=== PATIENT | male | born 1970 | race African-American/Black ===

== ENCOUNTER 2018-04-01 22:01 | Inpatient (IN) | payer MEDICAID ==
[~2018-04-01] VITALS: Ht 193 cm; Wt 118.8 kg
[2018-04-02 00:37] LABS: BASOPHILS % 1.1 % (0.0-2.0); EOSINOPHILS % 1.4 % (0.0-5.0); HEMATOCRIT. 36.8 % (42.0-52.0); HEMOGLOBIN. 12.1 g/dL (14.0-18.0); LYMPHOCYTES % 19.5 % (20.0-50.0); MEAN CORPUSCULAR HEMOGLOBIN 28.2 pg (28.0-32.0); MEAN CORPUSCULAR VOLUME 85.5 fL (80.0-94.0); MEAN PLATELET VOLUME 7.5 fl (7.4-10.4); MONOCYTES % 9.2 % (2.0-8.0); NEUTROPHILS % 68.8 % (40.0-76.0); PLATELET 219 x1000/uL (130-400); RED BLOOD CELL COUNT 4.31 mill/uL (4.7-6.1); RED CELL DISTRIBUTION WIDTH 22.8 % (11.6-14.6)
[2018-04-02 00:40] LABS: CHLORIDE 105 mEq/L (98-107)
[2018-04-02 00:43] LABS: INR 1.2; PARTIAL THROMBOPLASTIN TIME 27.5 sec (23.4-31.0); PROTHROMBIN TIME 12.1 sec (9.1-11.1)
[2018-04-02] MEDS ORDERED: FUROSEMIDE 100MG/10ML VIAL IVP ONE (01:00)
[2018-04-02] MEDS ORDERED: ACETAMINOPHEN 325MG TABLET PO PRN (09:45)
[2018-04-02] MEDS ORDERED: ONDANSETRON HCL 4MG/2ML INJ IV PRN (09:45)
[2018-04-02] MEDS: FUROSEMIDE 100MG/10ML VIAL IVP SCH ×2 (11:14→17:47)
[2018-04-02 11:50] VITALS: BP 112/78
[2018-04-02 12:00] VITALS: BP 110/78
[2018-04-02 15:43] LABS: CLARITY URINE CLEAR (CLEAR); COLOR URINE YELLOW (YELLOW); KETONES URINE NEGATIVE (NEGATIVE); LEUKOCYTE ESTERASE URINE NEGATIVE (NEGATIVE); NITRITE URINE NEGATIVE (NEGATIVE); OCCULT BLOOD URINE NEGATIVE (NEGATIVE); PROTEIN URINE NEGATIVE (NEGATIVE); SPECIFIC GRAVITY URINE 1.004 (1.005-1.030)
[2018-04-02 15:59] LABS: *AMPHETAMINES SCREEN URINE NEGATIVE (NEGATIVE); *BARBITURATES SCREEN URINE NEGATIVE (NEGATIVE); *BENZODIAZEPINES SCREEN URINE NEGATIVE (NEGATIVE); *COCAINE SCREEN URINE NEGATIVE (NEGATIVE)
[2018-04-02 16:00] VITALS: BP 118/71
[2018-04-02 16:00] LABS: CANNABINOID URINE SCREEN NEGATIVE (NEGATIVE); METHADONE URINE SCREEN NEGATIVE (NEGATIVE); OPIATES URINE SCREEN NEGATIVE (NEGATIVE); PHENCYCLIDINE URINE SCREEN NEGATIVE (NEGATIVE)
[2018-04-02 16:24] LABS: LDL CHOLESTEROL 65 mg/dL (5-100)
[2018-04-02 16:26] LABS: CREATINE KINASE 144 IU/L (39-308); HDL CHOLESTEROL 36 mg/dL (40-59)
[2018-04-02 20:00] VITALS: BP 102/68
[2018-04-02 21:00] VITALS: BP 102/68
[2018-04-03] VITALS: BP 110/77
[2018-04-03 04:00] VITALS: BP 98/53
[2018-04-03 06:00] VITALS: BP 112/70
[2018-04-03] MEDS: FUROSEMIDE 100MG/10ML VIAL IVP SCH ×2 (06:16→10:32)
[2018-04-03 07:17] LABS: BASOPHILS % 1.2 % (0.0-2.0); EOSINOPHILS % 1.6 % (0.0-5.0); HEMATOCRIT. 35.2 % (42.0-52.0); HEMOGLOBIN. 11.7 g/dL (14.0-18.0); LYMPHOCYTES % 21.1 % (20.0-50.0); MEAN CORPUSCULAR VOLUME 84.2 fL (80.0-94.0); MEAN PLATELET VOLUME 7.3 fl (7.4-10.4); MONOCYTES % 11.9 % (2.0-8.0); NEUTROPHILS % 64.2 % (40.0-76.0); PLATELET 208 x1000/uL (130-400); RED BLOOD CELL COUNT 4.18 mill/uL (4.7-6.1); RED CELL DISTRIBUTION WIDTH 23.2 % (11.6-14.6)
[2018-04-03 08:00] VITALS: BP 107/64
[2018-04-03 08:08] LABS: CHLORIDE 99 mEq/L (98-107)
[2018-04-03 12:00] VITALS: BP 110/71
[2018-04-03] MEDS: LISINOPRIL 10MG TABLET PO SCH (13:30)
[2018-04-03 15:15] LABS: PLATELET ESTIMATE NORMAL
[2018-04-03 20:00] VITALS: BP 98/67
[2018-04-03] MEDS: CARVEDILOL 3.125 MG TABLET PO SCH (21:19)
[2018-04-04] VITALS: BP 105/74
[2018-04-04 04:00] VITALS: BP 100/70
[2018-04-04] MEDS: FUROSEMIDE 100MG/10ML VIAL IVP SCH ×2 (07:05→17:07)
[2018-04-04 08:00] VITALS: BP 98/50
[2018-04-04] MEDS: LISINOPRIL 10MG TABLET PO SCH (08:53)
[2018-04-04] MEDS: CARVEDILOL 3.125 MG TABLET PO SCH ×2 (08:53→22:30)
[2018-04-04 12:00] VITALS: BP 108/78
[2018-04-04 16:00] VITALS: BP 110/79
[2018-04-04] MEDS: NICOTINE 7MG PATCH TD SCH (17:07)
[2018-04-04 20:00] VITALS: BP 86/49
[2018-04-04 20:48] LABS: CHLORIDE 95 mEq/L (98-107)
[2018-04-05] VITALS: BP 90/59
[2018-04-05 08:00] VITALS: BP 114/84
[2018-04-05] MEDS ORDERED: LIDOCAINE HCL 1% 20ML VIAL (Pyxis) INJ ONE (09:47)
[2018-04-05] MEDS ORDERED: SODIUM BICARBONATE 4% (2.4MEQ) 5ML VIAL IV ONE (09:47)
[2018-04-05] MEDS: CARVEDILOL 3.125 MG TABLET PO SCH ×2 (10:08→20:58)
[2018-04-05] MEDS: LISINOPRIL 10MG TABLET PO SCH (10:08)
[2018-04-05] MEDS: NICOTINE 7MG PATCH TD SCH (10:09)
[2018-04-05] MEDS: FUROSEMIDE 100MG/10ML VIAL IVP SCH ×2 (11:23→17:44)
[2018-04-05 12:00] VITALS: BP 120/70
[2018-04-05 16:00] VITALS: BP 100/70
[2018-04-05] MEDS ORDERED: HYDROCODONE/ACETAMINOPHEN 5/325MG TABLET PO PRN (17:30)
[2018-04-06 00:22] VITALS: BP 101/76
[2018-04-06 04:00] VITALS: BP 115/52
[2018-04-06 08:00] VITALS: BP 107/66
[2018-04-06] MEDS: NICOTINE 7MG PATCH TD SCH (09:39)
[2018-04-06] MEDS: FUROSEMIDE 100MG/10ML VIAL IVP SCH ×2 (09:39→17:15)
[2018-04-06] MEDS: LISINOPRIL 10MG TABLET PO SCH (09:40)
[2018-04-06] MEDS: CARVEDILOL 3.125 MG TABLET PO SCH ×2 (09:40→20:54)
[2018-04-06 12:00] VITALS: BP 110/70
[2018-04-06 16:00] VITALS: BP 94/60
[2018-04-06 20:00] VITALS: BP 101/67
[2018-04-07 00:17] VITALS: BP 101/57
[2018-04-07 04:00] VITALS: BP 98/44
[2018-04-07 08:00] VITALS: BP 100/75
[2018-04-07] MEDS: NICOTINE 7MG PATCH TD SCH (08:33)
[2018-04-07] MEDS: FUROSEMIDE 100MG/10ML VIAL IVP SCH ×2 (08:33→17:57)
[2018-04-07] MEDS: LISINOPRIL 10MG TABLET PO SCH (08:34)
[2018-04-07] MEDS: CARVEDILOL 3.125 MG TABLET PO SCH ×2 (08:35→21:00)
[2018-04-07 12:00] VITALS: BP 112/97
[2018-04-07 16:00] VITALS: BP 104/71
[2018-04-07 20:00] VITALS: BP 104/65
[2018-04-08] VITALS: BP 111/78
[2018-04-08 08:00] VITALS: BP 99/61
[2018-04-08] MEDS: FUROSEMIDE 100MG/10ML VIAL IVP SCH (08:53)
[2018-04-08] MEDS: LISINOPRIL 10MG TABLET PO SCH (08:54)
[2018-04-08] MEDS: NICOTINE 7MG PATCH TD SCH (08:54)
[2018-04-08] MEDS: CARVEDILOL 3.125 MG TABLET PO SCH (08:54)
[2018-04-08 12:00] VITALS: BP 91/58
[2018-04-08 14:32] VITALS: BP 99/61
== END 2018-04-08 16:22 | disposition home or self-care (01) | DRG 194 ==
LOC: ER 22:50 → EDBEDREQDT 04-02 01:08 → EDBEDREQ 04-02 01:08 → EDBEDREQTM 04-02 01:08 → ENRESERV 04-02 07:07 → 7WST 04-02 07:58
PROVIDERS: ADMIT Internal Medicine; ATTEND Internal Medicine
PROC: 0W9G3ZZ Drainage of Peritoneal Cavity, Percutaneous Approach (ICD-10-PCS; principal; 2018-04-06)
DX: I11.0 Hypertensive heart disease with heart failure (principal); E43 Unspecified severe protein-calorie malnutrition; I27.20 Pulmonary hypertension, unspecified; R18.8 Other ascites; I42.9 Cardiomyopathy, unspecified; I36.1 Nonrheumatic tricuspid (valve) insufficiency; I45.81 Long QT syndrome; D64.9 Anemia, unspecified; F17.210 Nicotine dependence, cigarettes, uncomplicated; J44.9 Chronic obstructive pulmonary disease, unspecified; N50.89 Other specified disorders of the male genital organs; Z53.29 Procedure and treatment not carried out because of patient's decision for other reasons; Z59.0 Homelessness; Z68.31 Body mass index [BMI] 31.0-31.9, adult; Z91.19 Patient's noncompliance with other medical treatment and regimen; Z71.6 Tobacco abuse counseling; M94.0 Chondrocostal junction syndrome [Tietze]; I50.23 Acute on chronic systolic (congestive) heart failure
CPT/HCPCS: 36415; 49083; 71045; 76705; 80048; 80061; 80305; 82550; 82553; 83880; 84145; 84443; 84484; 93005; 93306; 96374; 99285; J1940; J3490; J7060

== ENCOUNTER 2021-04-03 08:40 | Emergency (ER) | payer MEDICAID ==
[~2021-04-03] VITALS: Ht 180.3 cm; Wt 115.0 kg
[2021-04-03] MEDS ORDERED: LORAZEPAM 2MG/ML CPJ IV ONE (09:00)
[2021-04-03] MEDS ORDERED: OLANZAPINE 5MG TABLET ODT PO ONE (09:15)
[2021-04-03 11:03] VITALS: BP 96/65
[2021-04-03 11:29] LABS: BASOPHILS % 0.4 % (0.0-2.0); EOSINOPHILS % 1.6 % (0.0-5.0); HEMATOCRIT. 34.6 % (42.0-52.0); HEMOGLOBIN. 11.9 g/dL (14.0-18.0); LYMPHOCYTES % 16.3 % (20.0-50.0); MEAN CORPUSCULAR VOLUME 93.2 fL (80.0-94.0); MEAN PLATELET VOLUME 6.8 fl (7.4-10.4); MONOCYTES % 9.4 % (2.0-8.0); NEUTROPHILS % 72.3 % (40.0-76.0); PLATELET 244 x1000/uL (130-400); RED BLOOD CELL COUNT 3.72 mill/uL (4.7-6.1)
[2021-04-03 11:37] LABS: CHLORIDE 109 mEq/L (98-107)
[2021-04-03 11:43] LABS: ETHANOL BLOOD < 10 mg/dL
[2021-04-03] MEDS ORDERED: POTASSIUM CHLORIDE 20MEQ TABLET SR PO ONE (11:45)
[2021-04-03 12:07] LABS: DIGOXIN 0.4 ng/mL (0.9-2.0)
[2021-04-03] MEDS ORDERED: DIGOXIN 500MCG/2ML AMP IV ONE (12:30)
[2021-04-03] MEDS ORDERED: FUROSEMIDE 40MG/4ML VIAL IVP ONE (12:30)
== END 2021-04-03 13:15 | disposition left against medical advice (07) ==
LOC: ER 08:40 → CANBEDREQ 20:12
DX: R00.8 Other abnormalities of heart beat (principal); F91.8 Other conduct disorders; I11.0 Hypertensive heart disease with heart failure; I50.9 Heart failure, unspecified; F41.1 Generalized anxiety disorder; F43.0 Acute stress reaction; F15.10 Other stimulant abuse, uncomplicated
CPT/HCPCS: 36415; 71045; 80053; 80162; 80307; 80320; 80329; 83735; 83880; 84443; 84484; 85025; 93005; 96374; 99285; J2060; G0480

== ENCOUNTER 2021-04-04 03:03 | Emergency (ER) | payer MEDICAID ==
[~2021-04-04] VITALS: Ht 177.8 cm; Wt 133.0 kg
[2021-04-04] MEDS ORDERED: OLANZAPINE 10 MG/VIAL IM ONE (03:45)
[2021-04-04] MEDS ORDERED: LORAZEPAM 2MG/ML CPJ IM ONE ×2 (03:45→08:15)
[2021-04-04 04:31] LABS: BASOPHILS % 0.5 % (0.0-2.0); EOSINOPHILS % 2.5 % (0.0-5.0); HEMATOCRIT. 33.4 % (42.0-52.0); HEMOGLOBIN. 11.4 g/dL (14.0-18.0); LYMPHOCYTES % 14.4 % (20.0-50.0); MEAN CORPUSCULAR HEMOGLOBIN 31.9 pg (28.0-32.0); MEAN CORPUSCULAR VOLUME 93.5 fL (80.0-94.0); NEUTROPHILS % 71.6 % (40.0-76.0); PLATELET 247 x1000/uL (130-400); RED BLOOD CELL COUNT 3.57 mill/uL (4.7-6.1); RED CELL DISTRIBUTION WIDTH 13.7 % (11.6-14.6)
[2021-04-04 04:55] LABS: CHLORIDE 110 mEq/L (98-107)
[2021-04-04 05:00] LABS: ETHANOL BLOOD < 10 mg/dL
[2021-04-04] MEDS ORDERED: ZIPRASIDONE MESYLATE 20MG/VIAL IM ONE (05:15)
[2021-04-04 05:29] LABS: *AMPHETAMINES SCREEN URINE PRESUMTIVE POSITIVE (NEGATIVE); *BARBITURATES SCREEN URINE NEGATIVE (NEGATIVE); *BENZODIAZEPINES SCREEN URINE NEGATIVE (NEGATIVE); *COCAINE SCREEN URINE NEGATIVE (NEGATIVE)
[2021-04-04 05:30] LABS: CANNABINOID URINE SCREEN NEGATIVE (NEGATIVE); METHADONE URINE SCREEN NEGATIVE (NEGATIVE); OPIATES URINE SCREEN NEGATIVE (NEGATIVE); PHENCYCLIDINE URINE SCREEN NEGATIVE (NEGATIVE)
[2021-04-04] MEDS ORDERED: DIPHENHYDRAMINE 50MG/ML VIAL IM STA (08:02)
[2021-04-04] MEDS ORDERED: HALOPERIDOL LACTATE 5MG/ML VIAL IM ONE (08:15)
[2021-04-04 18:30] VITALS: BP 98/54
[2021-04-04] MEDS ORDERED: OLANZAPINE 5MG TABLET PO SCH (21:00)
== END 2021-04-04 19:01 ==
LOC: ER 03:03
DX: R41.82 Altered mental status, unspecified (principal); I11.0 Hypertensive heart disease with heart failure; I50.9 Heart failure, unspecified; Z20.822 Contact with and (suspected) exposure to COVID-19
CPT/HCPCS: 36415; 80053; 80305; 80307; 80320; 80329; 85025; 93005; 96372; 99291; C9803; J2060; J3486; J3490; U0003; U0005; Z7610; G0480